=== PATIENT | male | born 1965 | race Caucasian/White ===

== ENCOUNTER → 2017-12-05 | Outpatient (CLI) | payer BC ==
[2017-12-05 16:06] LABS: HCT 39.8 % (39.0-53.0); Hypochromasia Slight; MCH 25.4 pg (25.0-35.0); MCHC 32.5 g/dL (31.0-37.0); MCV 78.2 fL (80.0-100.0); Mean Platelet Volume 6.5; Platelet Count 275 k/uL (150-450); RDW 14.9 % (11.5-15.5); WBC 6.4 k/uL (3.8-10.6)
[2017-12-05 17:52] LABS: Prostate Specific Antigen 2.31 ng/mL (0.00-4.00)
== END | disposition home or self-care (01) ==
LOC: LABWHC1 15:41
PROVIDERS: ATTEND Internal Medicine Endocrinology, Diabetes & Metabolism
DX: E29.1 Testicular hypofunction (principal); E05.90 Thyrotoxicosis, unspecified without thyrotoxic crisis or storm
CPT/HCPCS: 36415; 84153; 84403; 84439; 84443; 85027

== ENCOUNTER → 2021-10-27 | Outpatient (CLI) | payer BC ==
[~2021-10-27] MED LIST: BEBTELOVIMAB (EUA) 175 MG/2 ML VIAL IV ONE
[2021-10-27 13:40] VITALS: RESP 16; TEMP 97.4
[2021-10-27 14:36] VITALS: BP 117/77; PULSE 70
== END | disposition home or self-care (01) ==
LOC: PROCWHC3 12:37
PROVIDERS: ATTEND Family Medicine
DX: U07.1 COVID-19 (principal)
CPT/HCPCS: Q0222; M0222

== ENCOUNTER 2022-12-22 07:19 | Day surgery (SDC) | payer BC ==
[~2022-12-22 07:19] MED LIST changes: -BEBTELOVIMAB (EUA) 175 MG/2 ML VIAL IV ONE; +LACTATED RINGERS 1,000 ML IV SCH
[2022-12-22] MEDS ORDERED: LACTATED RINGERS 1,000 ML IV ONE (07:35)
[2022-12-22] MEDS ORDERED: LIDOCAINE 2% INJ 20 MG/ML (2 ML VIAL) ONE (07:47)
[2022-12-22] MEDS ORDERED: PROPOFOL 10 MG/ML 20 ML VIAL IV ONE (07:47)
[2022-12-22 07:51] VITALS: TEMP 97.3
--- NOTE | 2022-12-22 08:08 | P.PCN ---
Date of Procedure: 12/22/22 Procedure(s) Performed: Brief history: Patient is a pleasant 77-year-old white male scheduled for an elective upper endoscopy as well as colonoscopy as a part of evaluation of iron deficiency anemia. Procedure performed: Esophagogastroduodenoscopy with biopsy Colonoscopy Preoperative diagnosis: Iron deficiency anemia Anesthesia: MAC Procedure: After informed consent was obtained from the patient was brought into the endoscopy unit and IV sedation was administered by anesthesia under continuous monitoring. Initially upper endoscopy was done. The Olympus GF 160 video endoscope was inserted inserted into the mouth and esophagus intubated without any difficulty and was gradually advanced into the stomach and duodenum and carefully examined. The bulb and second part of the duodenum appeared normal. Biopsies were done from the duodenum to rule out celiac disease. The scope was then withdrawn into the stomach adequately insufflated with air and upon careful examination the antrum had mild gastritis and biopsies were done from this area. Mucosa of the body, cardia and fundus appeared normal. The scope was then withdrawn into the esophagus. The GE junction was located at 40 cm to the incisors. It appeared regular with no erythema erosions or ulcerations. Rest of the esophagus appeared normal. Patient tolerated the procedure well. At this time the patient continued to remain sedation. Initial digital rectal examination was normal. Olympus CF 160 video colonoscope was then inserted into the rectum and gradually advanced to the cecum without any difficulty. Careful examination was performed as the scope was gradually being withdrawn. The prep was excellent. The cecum, ascending colon, transverse colon, descending colon, sigmoid colon and rectum appeared normal. Retroflexion was performed in the rectum and grade 2 internal hemorrhoids were noted. Patient tolerated the procedure well. Impression: 1. Upper endoscopy revealed mild antral gastritis but no evidence of esophagitis or peptic ulcer 2. Last revealed grade 2 internal hemorrhoids but no emesis of colorectal neoplasia Recommendations: Findings of this examination were discussed with the patient as well as his family. He was advised to follow with the biopsy results. Recommend repeat screening colonoscopy in 10 years.
[2022-12-22] MEDS ORDERED: HYDROCORTISONE SUPPOSITORY 25 MG SUPP RECTAL STA (08:57)
[2022-12-22 09:39] VITALS: BP 131/86; PULSE 55; RESP 14
== END 2022-12-22 09:44 | disposition home or self-care (01) ==
LOC: ORWHC2ENDO 07:19
PROVIDERS: ATTEND Internal Medicine Gastroenterology
DX: K29.70 Gastritis, unspecified, without bleeding (principal); K31.89 Other diseases of stomach and duodenum; K64.1 Second degree hemorrhoids; I10 Essential (primary) hypertension; E66.9 Obesity, unspecified; Z68.30 Body mass index [BMI] 30.0-30.9, adult; Z79.899 Other long term (current) drug therapy; Z88.1 Allergy status to other antibiotic agents; Z88.8 Allergy status to other drugs, medicaments and biological substances
CPT/HCPCS: 88305; 45378; 43239; J2704; J2001